=== PATIENT | male | born 2005 | race Caucasian/White ===

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

== ENCOUNTER 2023-09-24 15:15 | Outpatient (CLI) | payer BC, SELFPAY ==
--- NOTE | ~2023-09-24 | XR_ITS ---
EXAMINATION: XR hand RT min 3V DATE: 09/24/2023 15:30 INDICATION: Right hand injury and pain and swelling. TECHNIQUE: 3 views of right hand were obtained. COMPARISON: None. FINDINGS: Bone alignment is normal. No fracture. Joint spaces are normal. IMPRESSION: 1. Normal right hand. Reviewed, dictated and finalized at location A. [employer] SUPERVISOR IMPRESSION: 1. Normal right hand.
== END 2023-09-24 15:16 | disposition home or self-care (01) ==
LOC: CHSIMG 15:17
PROVIDERS: PCP Family Medicine; Visit Provider Family Medicine
DX: M79.641 Pain in right hand (principal)
CPT/HCPCS: 73130